=== PATIENT | female | born 1955 | race African-American/Black ===

== ENCOUNTER 2016-08-31 11:53 | Emergency (ER) | payer OTHER ==
[~2016-08-31] VITALS: Ht 157.5 cm; Wt 81.6 kg
[~2016-08-31 11:53] MED LIST: ACET325T9 PO; AZIT250T PO; CYCL10TA2 PO; HYDR115S2 PO; LISI10TA2 PO; LISI1TAB3 PO; MELO7.5T5 PO; OMEP40CA5 PO; POLY17PO5 PO
[2016-08-31 12:55] VITALS: BP 136/70
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
--- NOTE | 2016-08-31 13:43 | RAD ---
Indication pain and tenderness on the lateral portion of the right lower leg. Pain for approximately a week. AP and lateral views of the right tibia and fibula were obtained. No acute or significant bony finding is seen
--- NOTE | 2016-08-31 14:30 | RAD ---
Right lower extremity venous ultrasound, 08/31/2016 : History: Pain and tenderness Duplex evaluation including grayscale, color flow and spectral Doppler analysis was performed. The femoral and popliteal veins show no filling defects to suggest DVT. The visualized calf veins are unremarkable. IMPRESSION: There is no sonographic evidence of deep vein thrombosis in the right lower extremity
== END 2016-08-31 14:52 | disposition home or self-care (01) ==
LOC: ER 11:56
DX: M79.661 Pain in right lower leg (principal); I10 Essential (primary) hypertension; Z88.2 Allergy status to sulfonamides
CPT/HCPCS: 73590; 93971; 99284-25

== ENCOUNTER → 2017-07-28 | Outpatient (CLI) | payer OTHER ==
[~2017-07-28] MED LIST changes: +POLY17PO29 PO; -POLY17PO5 PO
--- NOTE | 2017-07-28 11:34 | RAD ---
DATE: July 28, 2017 EXAM: DIGITAL SCREEN BILAT W/CAD HISTORY: Routine screening. COMPARISON: Priors back to July 03, 2014. TECHNIQUE: 2D digital CC and MLO views of each breast were obtained. This study was interpreted with the benefit of Computerized Aided Detection (CAD). FINDINGS: The breast parenchyma demonstrates scattered fibroglandular densities, category B. There is no worrisome mass or area of architectural distortion. Small and parenchymal lymph node in the upper outer right breast is stable. A few benign-appearing calcifications are stable. IMPRESSION: Stable mammogram with benign findings. BI-RADS CATEGORY: 2 BENIGN FINDING RECOMMENDED FOLLOW-UP: 12M 12 MONTH FOLLOW-UP PQRS compliance statement: Patient information was entered into a reminder system with a target due date for the next mammogram. Mammography is a sensitive method for finding small breast cancers, but it does not detect them all and is not a substitute for careful clinical examination. A negative mammogram does not negate a clinically suspicious finding and should not result in delay in biopsying a clinically suspicious abnormality. "Our facility is accredited by the [employer] Mammography Program."
== END | disposition home or self-care (01) ==
LOC: MAMMO 07:44
PROVIDERS: ATTEND Family Medicine
DX: Z12.31 Encounter for screening mammogram for malignant neoplasm of breast (principal)
CPT/HCPCS: G0202; 77067

== ENCOUNTER 2017-11-06 12:59 | Emergency (ER) | payer OTHER | END 2017-11-06 14:27 | disposition home or self-care (01) | LOC: ER 14:27 | DX: M79.604 Pain in right leg (principal); I10 Essential (primary) hypertension; K21.9 Gastro-esophageal reflux disease without esophagitis; Z90.49 Acquired absence of other specified parts of digestive tract; Z88.2 Allergy status to sulfonamides | CPT/HCPCS: 93971; 99284-25 ==

== ENCOUNTER → 2018-05-24 | Outpatient (CLI) | payer OTHER ==
[2017-11-06 13:10] VITALS: BP 131/76
--- NOTE | 2018-05-24 12:53 | RAD ---
MRI of the lumbar spine without contrast 05/24/2018 CLINICAL HISTORY: Low back pain which radiates down the right leg for 2 months. TECHNIQUE: Unenhanced T1-weighted and T2-weighted sagittal and axial and inversion recovery sagittal images of the lumbar spine were obtained. FINDINGS: Comparison study is dated 03/16/2016. L5 is again noted to be partially sacralized. The L5-S1 disc is hypoplastic. Degenerative signal changes and loss of height are seen involving the L4-5 discs. Degenerative signal changes are seen within the marrow surrounding this disc. A 1.6 cm hemangioma is seen involving the T12 vertebral body, unchanged. The conus medullaris is normal in morphology, position, and signal characteristics. At the L1-2, L2-3, and L3-4 disc spaces there are minimal to mild generalized disc bulges. Degenerative changes are seen involving the facet joints bilaterally. These findings do not result in significant central spinal canal or neural foraminal stenosis. At the L4-5 disc space there is a mild to moderate generalized disc bulge. This is eccentric to the right. Degenerative changes are seen involving the facet joints bilaterally. There is moderate ligamentum flavum hypertrophy bilaterally. Small facet joint effusions are seen bilaterally. These findings when combined do not result in significant central spinal canal stenosis. Mild right neural foraminal stenosis is seen. The left neural foramen is patent. The L5-S1 disc space is within normal limits. Since the previous examination there has been no significant interval change. IMPRESSION: The changes of degenerative disc disease are seen throughout the lumbar spine. These findings do not result in significant central spinal canal stenosis at any level. Mild right neural foraminal stenosis is seen at L4-5. Electronically signed by: Marco Kimble MD (05/24/2018 12:49 PM) [email or web address]
== END | disposition home or self-care (01) ==
LOC: MRI 10:47
PROVIDERS: ATTEND Family Medicine
DX: M51.36 Other intervertebral disc degeneration, lumbar region (principal); M48.061 Spinal stenosis, lumbar region without neurogenic claudication
CPT/HCPCS: 72148

== ENCOUNTER → 2018-08-13 | Outpatient (CLI) | payer OTHER ==
[2017-11-06 13:10] VITALS: BP 131/76
--- NOTE | 2018-08-15 12:10 | RAD ---
DATE: 08/13/2018 10:30 AM EXAM: DIGITAL SCREEN BILAT W/CAD HISTORY: routine screening evaluation. COMPARISON: Prior mammographic imaging dating back to 03/05/2009 Bilateral full field craniocaudal and mediolateral oblique images were obtained using digital technique. This study was interpreted with the benefit of Computerized Aided Detection (CAD ). Breast Density: The breast parenchyma is primarily fatty replaced. Breast parenchyma level density A. FINDINGS: Benign calcifications are present. No suspicious masses, microcalcifications or architectural distortion is present to suggest malignancy in either breast. The visualized axillae are unremarkable. IMPRESSION: No mammographic evidence of malignancy. BI-RADS CATEGORY: 2 BENIGN FINDING(S) RECOMMENDED FOLLOW-UP: 12M 12 MONTH FOLLOW-UP Annual screening mammography is recommended, unless clinically indicated sooner based on symptoms or change in physical exam. PQRS compliance statement: Patient information was entered into a reminder system with a target due date 08/15/2019 for the next mammogram. Mammography is a sensitive method for finding small breast cancers, but it does not detect them all and is not a substitute for careful clinical examination. A negative mammogram does not negate a clinically suspicious finding and should not result in delay in biopsying a clinically suspicious abnormality. "Our facility is accredited by the [employer] Mammography Program." MTDD
== END | disposition home or self-care (01) ==
LOC: MAMMO 08:21
PROVIDERS: ATTEND Family Medicine
DX: Z12.31 Encounter for screening mammogram for malignant neoplasm of breast (principal)
CPT/HCPCS: 77067

== ENCOUNTER → 2019-01-04 | Day surgery (SDC) | payer OTHER ==
[~2019-01-04] MED LIST changes: +CETI10TA22 PO; +IV RINGERS,LACTATED 1000ML 1,000 ML IV SCH; +NAPR-514 PO; +PANT20TA2 PO; +PROPOFOL 40 ML IV ONE
[2019-01-04 09:01] VITALS: BP 97/59
== END | disposition home or self-care (01) ==
LOC: SURG 07:23
PROVIDERS: ATTEND Internal Medicine Gastroenterology
DX: Z12.11 Encounter for screening for malignant neoplasm of colon (principal); K63.89 Other specified diseases of intestine; K64.0 First degree hemorrhoids; K21.9 Gastro-esophageal reflux disease without esophagitis; I10 Essential (primary) hypertension; Z88.8 Allergy status to other drugs, medicaments and biological substances; Z91.040 Latex allergy status; Z87.39 Personal history of other diseases of the musculoskeletal system and connective tissue; Z72.89 Other problems related to lifestyle; Z90.49 Acquired absence of other specified parts of digestive tract; Z98.51 Tubal ligation status
CPT/HCPCS: 45378; J2704

== ENCOUNTER 2019-08-10 19:26 | Emergency (ER) | payer OTHER ==
[~2019-08-10] VITALS: Ht 157.5 cm; Wt 86.6 kg
[~2019-08-10 19:26] MED LIST changes: -IV RINGERS,LACTATED 1000ML 1,000 ML IV SCH; +LISI1TAB23 PO; -LISI1TAB3 PO; +OMEP40CA45 PO; -OMEP40CA5 PO; -PROPOFOL 40 ML IV ONE
[2019-08-10 19:45] VITALS: BP 177/87
[2019-08-10] MEDS ORDERED: IBUP-1007 PO (22:13)
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
--- NOTE | 2019-08-10 22:50 | RAD ---
Exam:Bilateral ribs with PA chest Date: 08/10/2019 7:52 PM Comparison: No prior Indication: Fall Findings/ Impression: The heart is not enlarged. Mediastinal and hilar contours are normal. No focal parenchymal airspace opacity. No pleural effusion or pneumothorax. Cholecystectomy clips are seen AP, Oblique and Spot images of the bilateral ribs are negative for acute displaced rib fracture. Negative focal pleural elevation. Symmetrical intercostal spacing. It is of note that an acute non-displaced rib fracture can be in-apparent on initial post-trauma imaging. Electronically signed by: Jaylon Li MD (08/10/2019 10:47 PM) [id number]
== END 2019-08-10 22:18 | disposition home or self-care (01) ==
LOC: ER 19:26
DX: R07.81 Pleurodynia (principal); K21.9 Gastro-esophageal reflux disease without esophagitis; I10 Essential (primary) hypertension; Z88.2 Allergy status to sulfonamides; Z91.040 Latex allergy status
CPT/HCPCS: 71111; 99284

== ENCOUNTER → 2019-10-07 | Outpatient (CLI) | payer OTHER ==
[~2019-10-07] MED LIST changes: -CETI10TA22 PO; +CETI10TA24 PO; +IBUP-1007 PO
--- NOTE | 2019-10-10 10:12 | RAD ---
History: Routine Screening. Technique: Bilateral digital mammographic routine views were obtained with CAD - computer aided detection. Comparison: 08/13/2018. Findings: Breast Tissue Density A : The breast tissue is predominately fatty replaced. There are no suspicious masses, microcalcifications or areas of architectural distortion. Impression: Negative mammogram. BI-RADS Category 1: Negative. Normal interval followup. . A mammogram does not have 100% sensitivity and therefore a negative imaging study should not delay further work up of a suspicious abnormality. The patient will receive a letter with the results in the mail. Patient information is entered into the reminder system with a target due date for the next screening mammogram. The patient will receive a reminder. "Our facility is accredited by the [employer] Mammography Program." BI-RADS 1 -- negative findings (within normal)
== END | disposition home or self-care (01) ==
LOC: MAMMO 07:41
PROVIDERS: ATTEND Family Medicine
DX: Z12.31 Encounter for screening mammogram for malignant neoplasm of breast (principal)
CPT/HCPCS: 77067

== ENCOUNTER → 2020-10-09 | Outpatient (CLI) | payer OTHER ==
[~2020-10-09] MED LIST changes: -CETI10TA24 PO; +CETI10TA74 PO; +LISI10TA16 PO; -LISI10TA2 PO
--- NOTE | 2020-10-10 10:04 | RAD ---
DATE: 10/09/2020 8:20 AM EXAM: DIGITAL SCREEN BILAT W/CAD HISTORY: Screening COMPARISON: 10/07/2019 Bilateral full field craniocaudal and mediolateral oblique images were obtained using digital technique. This study was interpreted with the benefit of Computerized Aided Detection (CAD). FINDINGS: Breast Density: FATTY The Breast Parenchyma is primarily fatty replaced. Breast parenchyma level density A. No suspicious masses, microcalcifications or architectural distortion is present to suggest malignancy in either breast. The visualized axillae are unremarkable. IMPRESSION: No mammographic evidence of malignancy. BI-RADS CATEGORY: 1 NEGATIVE RECOMMENDED FOLLOW-UP: 12M 12 MONTH FOLLOW-UP Annual screening mammography is recommended, unless clinically indicated sooner based on symptoms or change in physical exam. PQRS compliance statement: Patient information was entered into a reminder system with a target due date for the next mammogram. Mammography is a sensitive method for finding small breast cancers, but it does not detect them all and is not a substitute for careful clinical examination. A negative mammogram does not negate a clinically suspicious finding and should not result in delay in biopsying a clinically suspicious abnormality. "Our facility is accredited by the [employer] Mammography [employer]."
== END ==
LOC: MAMMO 07:58
PROVIDERS: ATTEND Family Medicine
DX: Z12.31 Encounter for screening mammogram for malignant neoplasm of breast (principal)
CPT/HCPCS: 77067

== ENCOUNTER → 2021-10-15 | Outpatient (CLI) | payer OTHER ==
[~2021-10-15] MED LIST changes: +CYCL10TA19 PO; -CYCL10TA2 PO; -LISI1TAB23 PO; +LISI1TAB35 PO; -OMEP40CA45 PO; +OMEP40CA7 PO
--- NOTE | 2021-10-15 12:48 | RAD ---
INDICATION: 65 years of age asymptomatic female patient presents for screening mammography. No person al history of breast cancer. Family history of breast cancer in cousin at age 44 TECHNIQUE: Full field craniocaudal and mediolateral oblique images of both breasts also analyzed wi [employer] computer-aided detection software. COMPARISON: Prior mammographic imaging dating back to 07/28/2017. BREAST COMPOSITION: Category A: The breasts are predominantly fatty. FINDINGS: No suspicious masses, microcalcifications or architectural distortion is present to suggest malignanc y in either breast. The visualized axillae are unremarkable. IMPRESSION: No mammographic evidence of malignancy. RECOMMENDATION: Annual screening mammography is recommended, unless clinically indicated sooner based on symptoms or change in physical exam. BIRADS 1: NEGATIVE This study was interpreted with the benefit of Computerized Aided Detection (CAD). Patient information is entered into the reminder system with a target due date for the next screening mammogram. Mammography is the most sensitive method for finding small breast cancers, but it does not detect the m all and is not a substitute for careful clinical examination. A negative mammogram does not negate a clinically suspicious finding and should not result in delay in biopsying a clinically suspicious a bnormality. "Our facility is accredited by the [employer] Mammography Program." Electronically signed by: Abisai Granados DO (10/15/2021 12:45 PM) [id number]
== END ==
LOC: MAMMO 11:00
PROVIDERS: ATTEND Family Medicine
DX: Z12.31 Encounter for screening mammogram for malignant neoplasm of breast (principal)
CPT/HCPCS: 77067

== ENCOUNTER → 2021-12-03 | Outpatient (CLI) | payer OTHER ==
--- NOTE | 2021-12-03 08:26 | RAD ---
EXAMINATION: RIGHT UPPER QUADRANT ULTRASOUND CLINICAL HISTORY: Right upper quadrant abdominal pain. TECHNIQUE: Sonography of the right upper quadrant was performed. COMPARISON: None FINDINGS: Pancreas: Not visualized secondary to prominent overlying bowel gas. Liver: - Echotexture: Mildly heterogeneous - Echogenicity: Normal - Surface contour: Smooth - Lesions: None. Biliary: No intrahepatic biliary duct dilation. - CBD: 6 mm. - Gallbladder: Cholecystectomy. Right Kidney: Measures 10.8 cm in length. No hydronephrosis or focal lesion. Ascites: None. IVC: Partially visualized IVC unremarkable. IMPRESSION: No evidence of acute abnormality in the right upper quadrant. Nonvisualized pancreas. Cholecystectomy. Electronically signed by: Raghav Alvarez DO (12/03/2021 8:24 AM) [id number]
== END ==
LOC: US 06:44
PROVIDERS: ATTEND Family Medicine
DX: R10.11 Right upper quadrant pain (principal); Z90.49 Acquired absence of other specified parts of digestive tract
CPT/HCPCS: 76705